=== PATIENT | male | born 1940 | race Caucasian/White ===

== ENCOUNTER 2020-10-04 09:32 | Outpatient (CLI) | payer MEDICARE, OTHER ==
[2020-10-04 10:07] LABS: CHOL/HDL RATIO 2.1 (<5.0); CHOLESTEROL 105 mg/dL; HDL CHOLESTEROL 49 mg/dL; LDL CHOLESTEROL,CALCULATED 37 mg/dL; LDL/HDL RATIO 0.8 (<3.6); TRIGLYCERIDES 95 mg/dL; VLDL CHOLESTEROL 19 mg/dL
== END 2020-10-04 09:33 | disposition home or self-care (01) ==
LOC: LAB 09:32
PROVIDERS: ATTEND Internal Medicine
DX: I25.10 Atherosclerotic heart disease of native coronary artery without angina pectoris (principal)
CPT/HCPCS: 36415; 80061; 83721

== ENCOUNTER 2021-09-08 08:00 | Outpatient (CLI) | payer MEDICARE, OTHER ==
[2021-09-08 15:05] LABS: CALCIUM 8.9 mg/dL (8.5-10.3); CREATININE 0.9 mg/dL (0.6-1.2); POTASSIUM 4.2 mmol/L (3.5-5.0)
== END 2021-09-08 23:59 | disposition home or self-care (01) ==
LOC: LAB.N 08:00
PROVIDERS: ATTEND Physician Assistant Medical
DX: U07.1 COVID-19 (principal)
CPT/HCPCS: 36415; 80048

== ENCOUNTER 2021-11-09 16:04 | Emergency (ER) | payer MEDICARE, OTHER ==
--- OUTSIDE RECORDS SUMMARY | 2021-11-09 16:11 | EXTERNAL MEDICAL SUMMARY RPT | Continuity of Care Document ---
:1940 Author Organization [place] [facility] Address [address] [place] [address] Phone Allergies No information. Encounters No information. Functional Status No information. Immunizations No information. Medications date description facility +0000 terazosin All [id number]+0000 metoprolol succinate All [id number]+0000 lisinopril All 78501023108492+0000 sulfasalazine All 98305483025550+0000 icosapent ethyl All 94721493100402+0000 sulfasalazine All 37511969382171+0000 atorvastatin All 87239195025254+0000 lisinopril All 01233794999234+0000 terazosin All 74004022218440+0000 ezetimibe All 73300557565639+0000 icosapent ethyl All 11660479663664+0000 ergocalciferol (vitamin d2) All 63380582954130+0000 metformin All 03271828963331+0000 atorvastatin All 40675669550040+0000 ezetimibe All 12034557617668+0000 metformin All 02102582162169+0000 metoprolol succinate All Problems No information. Procedures date description facility +0000 Visit Code Hold All Results/Labs No information. Social History No information. Vital Signs date measurement value units +0000 BMI BMI 30.66 kg/m2 06304884612894+0000 BP_diastolic BP_diastolic 71 mm[H g] 14910369519671+0000 BP_systolic BP_systolic 133 mm[Hg] 74803637339228+0000 heart_rate heart_rate 83 /min 56928123403151+0000 height_metric height_metric 162.56 cm 22559953299543+0000 height_standard height_standard 64 in 92854863237023+0000 respiration_rate respiration_rate 16 /min 75028740962531+0000 temperature_metric temperature_metric 37.17 C 51583597257741+0000 temperature_standard temperature_standard 9 8.9 F 64169726723648+0000 weight_metric weight_metric 80.74 kg 10794777096281+0000 weight_standard weight_standard 178 lb
[2021-11-09 16:20] VITALS: BP 139/67
--- NOTE | 2021-11-09 17:37 | XRAY Report ---
PROCEDURE: Shoulder 3 View RT INDICATIONS: fall off stool TECHNIQUE: 3 views of the shoulder were acquired. COMPARISON: None. FINDINGS: Bones: There is a proximal comminuted humeral shaft fracture with mild displacement. No suspicious [place] lesions. Visualized ribs appear intact. Soft tissues: No suspicious soft tissue calcifications. IMPRESSION: Comminuted mildly displaced proximal humeral shaft fracture Reviewed by: Natacha Baird MD on 11/09/2021 5:36 PM PDT Approved by: Natacha Baird MD on 11/09/2021 5:36 PM PDT Station ID: [id number]
[2021-11-09] MEDS ORDERED: oxyCODONE/ACET 5/325 Prepack 4 PO STA (17:54)
[2021-11-09] MEDS ORDERED: oxyCODONE 5 MG TABLET PO STA (17:54)
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
== END 2021-11-09 19:09 | disposition home or self-care (01) ==
LOC: ED 16:04
DX: S42.351A Displaced comminuted fracture of shaft of humerus, right arm, initial encounter for closed fracture (principal); W08.XXXA Fall from other furniture, initial encounter; Y93.89 Activity, other specified
CPT/HCPCS: 73030; 99283; A9270

== ENCOUNTER 2021-11-27 08:00 | Outpatient (CLI) | payer MEDICARE, OTHER ==
--- NOTE | 2021-11-27 15:17 | XRAY Report ---
PROCEDURE: Humerus RT INDICATIONS: RIGHT HUMERUS FX TECHNIQUE: 3 views of the humerus were acquired. COMPARISON: Plain films dated 11/09/2021 FINDINGS: Bones: No change in mildly angulated comminuted moderately displaced fracture of the mid humerus. No suspicious bony lesions. Soft tissues: No suspicious soft tissue calcifications. IMPRESSION: No change in humeral fracture. Reviewed by: Shawna Woodruff MD on 11/27/2021 3:15 PM PDT Approved by: Shawna Woodruff MD on 11/27/2021 3:15 PM PDT Station ID: [id number]
== END 2021-11-27 23:59 | disposition home or self-care (01) ==
LOC: DI.WOS 08:00
PROVIDERS: ATTEND Orthopaedic Surgery
DX: S42.351A Displaced comminuted fracture of shaft of humerus, right arm, initial encounter for closed fracture (principal)

== ENCOUNTER 2023-10-12 12:25 | Outpatient (CLI) | payer MEDICARE, OTHER ==
[2023-10-12 13:38] LABS: ALBUMIN 3.9 g/dL (3.2-5.5); BILIRUBIN,DIRECT 0.29 mg/dL (0.03-0.18); BILIRUBIN,TOTAL 0.5 mg/dL (0.2-1.0); CREATININE 0.8 mg/dL (0.6-1.3); TOTAL PROTEIN 7.3 g/dL (6.4-8.9)
== END 2023-10-12 12:26 | disposition home or self-care (01) ==
LOC: LAB 12:25
PROVIDERS: ATTEND Physician Assistant Medical
DX: B35.1 Tinea unguium (principal)
CPT/HCPCS: 36415; 80076; 82565; 84520